=== PATIENT | female | born 1950 | race Caucasian/White ===

== ENCOUNTER → 2016-11-19 | Outpatient (CLI) | payer MEDICARE ==
[~2016-11-19] MED LIST: ASCO10004 PO; CALC1CAP8 PO; CALC500T47 PO; CHOL20003 PO; DIPH25CA61 PO; GABA300C10 PO; HYDR473S47 PO; IBUP100T7 PO; LEVO125T PO; LEVO200T PO; LEVO25TA2 PO; LIOT5TAB3 PO; LOVENOX; MULT1TAB60 PO; RIVA10TA PO; SYNTHROID PO; vit b PO
== END | disposition home or self-care (01) ==
LOC: CFH 15:52
PROVIDERS: ATTEND Internal Medicine Hematology & Oncology
DX: I82.C11 Acute embolism and thrombosis of right internal jugular vein (principal)

== ENCOUNTER → 2016-11-24 | Outpatient (CLI) | payer MEDICARE | END | disposition home or self-care (01) | LOC: RAD 16:23 | PROVIDERS: ATTEND Nurse Practitioner | DX: S62.617A Displaced fracture of proximal phalanx of left little finger, initial encounter for closed fracture (principal); S62.615A Displaced fracture of proximal phalanx of left ring finger, initial encounter for closed fracture; X58.XXXA Exposure to other specified factors, initial encounter; Y93.89 Activity, other specified; Y92.89 Other specified places as the place of occurrence of the external cause; Y99.8 Other external cause status ==